=== PATIENT | female | born 1940 | race Caucasian/White ===

== ENCOUNTER 2019-03-25 20:57 | Emergency (ER) | payer OTHER ==
[~2019-03-25] VITALS: Ht 165.1 cm; Wt 77.1 kg
[2019-03-25 22:25] LABS: ABSOLUTE NEUTROPHILS 4.6 thou/uL (1.4-8.2); BASOPHILS 0.8 % (0.0-2.0); EOSINOPHILS 0.4 % (0.0-3.0); HEMATOCRIT 36.4 % (37.0-47.0); LYMPHOCYTES 22.6 % (24.0-44.0); MCH 30.3 pg (26.0-34.0); MCHC 33.1 g/dL (28.0-37.0); MCV 91.5 fL (80.0-100.0); MONOCYTES 6.3 % (1.0-8.0); PLATELET COUNT 156 thou/uL (150-400); POLYS 69.9 % (36.0-66.0); RBC 3.97 mil/uL (4.20-5.00); RDW 14.4 % (10.5-14.5); WBC 6.6 thou/uL (4.0-11.0)
[2019-03-25 22:30] LABS: CALCIUM 9.9 mg/dL (8.5-10.1); CREATININE 1.1 mg/dL (0.6-1.0); POTASSIUM 4.3 mmol/L (3.5-5.1)
[2019-03-25] MEDS ORDERED: DETROL LA2 MG PO (22:47)
[2019-03-25] MEDS ORDERED: METFORMIN HCL500 MG PO (22:47)
[2019-03-25] MEDS ORDERED: TRADJENTA5 MG (22:48)
[2019-03-25] MEDS ORDERED: VERAPAMIL E.R240 M1 PO (22:50)
[2019-03-25] MEDS ORDERED: COZAAR 25 MG TA25 M1 PO (22:50)
[2019-03-25] MEDS ORDERED: FOLIC ACID1 MG PO (22:51)
[2019-03-25] MEDS ORDERED: NEURONTIN 300300 M1 PO (22:51)
[2019-03-25] MEDS ORDERED: BENTYL 10 MG CA10 MG PO (22:51)
[2019-03-25] MEDS ORDERED: PLAVIX 75 MG TA75 M1 PO (22:51)
[2019-03-25] MEDS ORDERED: LIPITOR40 MG PO (22:52)
[2019-03-25] MEDS ORDERED: ASPIRIN81 M2 PO (22:52)
[2019-03-25 22:53] LABS: URINE BILIRUBIN NEGATIVE (Negative); URINE BLOOD TRACE (Negative); URINE CLARITY CLEAR; URINE COLOR YELLOW; URINE GLUCOSE-RANDOM* NEGATIVE (Negative); URINE KETONES NEGATIVE (Negative); URINE LEUKOCYTES-REFLEX TRACE (Negative); URINE NITRITE-REFLEX NEGATIVE (Negative); URINE PROTEIN (DIPSTICK) NEGATIVE (Negative); URINE UROBILINOGEN 0.2 E.U./dl (0.2-1.0)
[2019-03-25 23:12] VITALS: BP 166/76
--- NOTE | 2019-03-26 08:40 | EKG ---
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: JOSE : 1940 Requested By: Shamir Berkowitz Order Number: [id number] MD: Matthew Roberts Measurements Intervals [place] Rate: 76 P: -16 WA: 191 QRS: -37 QRSD: 100 T: 10 QT: 387 QTc: 436 Interpretive Statements Sinus rhythm Atrial premature complex Abnormal R-wave progression, early transition Left ventricular hypertrophy No previous ECG available for comparison Electronically Signed On 03-26-2019 8:40:46 CDT by Matthew Roberts [email or web address] ��������������������������������������������� <ELECTRONICALLY SIGNED> ���������������������������������������� By: Matthew Roberts MD, [facility] ��������������������������������������������� 03/26/19 0840 2103 03 Matthew Roberts MD, FACC /EPI
== END 2019-03-25 23:50 | disposition home or self-care (01) ==
LOC: ER 20:57
PROVIDERS: Emergency Medicine
DX: G89.29 Other chronic pain (principal); M25.562 Pain in left knee; N39.0 Urinary tract infection, site not specified; W18.11XA Fall from or off toilet without subsequent striking against object, initial encounter; Y93.89 Activity, other specified; Y92.89 Other specified places as the place of occurrence of the external cause; Y99.8 Other external cause status